=== PATIENT | female | born 1985 | race Caucasian/White ===

== ENCOUNTER 2016-08-14 18:52 | Emergency (ER) | payer OTHER ==
[2016-08-14 19:06] VITALS: BP 124/90
== END 2016-08-14 20:31 | disposition left against medical advice (07) ==
LOC: ED 18:52
DX: R42 Dizziness and giddiness (principal)
CPT/HCPCS: 93005

== ENCOUNTER 2018-12-04 12:49 | Inpatient (IN) | payer OTHER ==
[2018-12-04] MEDS ORDERED: Lactated Ringers 1000 ML Bag* 1,000 ML IV ONE (14:21)
[2018-12-04] MEDS ORDERED: Buffered Lidocaine 1% SYRIN* 1 ML/SYRINGE INTRADERM ONE (14:21)
[2018-12-04] MEDS ORDERED: Dinoprostone* 10 MG VAG.SUPP VAGINAL ONE (14:21)
[2018-12-04 15:45] LABS: Urine Appearance Cloudy; Urine Bacteria 1+ (Absent); Urine Bilirubin Negative (Negative); Urine Blood 2+ (Negative); Urine Color Yellow; Urine Glucose Negative (Negative); Urine Ketones 1+ (Negative); Urine Nitrite Negative (Negative); Urine Protein Negative (Negative); Urine Red Blood Cell Trace(0-2/hpf) (Absent); Urine Specific Gravity 1.025 (1.010-1.030); Urine Squamous Epithelial Cell Present (Absent); Urine Urobilinogen Negative (Negative); Urine White Blood Cell Trace(0-5/hpf) (Absent)
[2018-12-04 15:46] LABS: ABS Eosinophils 0.1 10^3/ul (0-0.6); ABS Lymphocytes 1.6 10^3/ul (1.0-4.8); ABS Monocytes 0.7 10^3/ul (0-0.8); ABS Neutrophils 7.8 10^3/ul (1.5-7.7); Eosinophil % 0.5 %; Hematocrit 35 % (35-47); Hemoglobin 12.5 g/dL (12.0-16.0); Lymphocyte % 15.6 %; Mean Corpuscular HGB Conc 36 g/dL (31-36); Mean Corpuscular Hemoglobin 32 pg (27-31); Mean Corpuscular Volume 91 fL (80-97); Mean Platelet Volume 8.9 fL (7.4-10.4); Nucleated Red Blood Cells % 0.2; Platelet Count 248 10^3/uL (150-450); Red Blood Count 3.89 10^6 /uL (3.70-4.87); Red Cell Distribution Width 12 % (10.5-15); White Blood Count 10.2 10^3/uL (3.5-10.8)
[2018-12-04 15:57] LABS: Urine Benzodiazepine Screen None Detected (None Detect); Urine Opiates Screen None Detected (None Detect)
[2018-12-04 15:58] LABS: Albumin 3.5 g/dL (3.2-5.2); Calcium 9.3 mg/dL (8.6-10.3); Potassium 3.9 mmol/L (3.5-5.0); Total Bilirubin 0.5 mg/dL (0.2-1.0)
[2018-12-04 16:04] LABS: Albumin/Globulin Ratio 1.3 (1-3); BUN/Creatinine Ratio 19.2 (8-20); EGFR African American 162.4 (>60); EGFR Non-African American 134.2 (>60); Globulin 2.8 g/dL (2-4); Total Protein 6.3 g/dL (6.4-8.9); Uric Acid 5.1 mg/dL (2.3-6.6)
[2018-12-04] MEDS ORDERED: diPHENhydraMINE PO* 50 MG PO PRN (16:59)
--- NOTE | 2018-12-04 17:06 | HP ---
General Information - Reason for Visit Pt c/o headache and blurred vision. Pt denies epigastric pain, contractions or LOF. - General Information Maternal Age: 33 Grav: 2 Para: 0 SAB: 0 IEA: 1 Estimated Due Date: 12/03/18 Determined By: LMP Maternal Blood Type and Rh: A Positive - Results this Serology/RPR Result: Non-Reactive Rubella Result: Immune HBsAg Result: Negative HIV Result: Negative GBS Culture Result: Negative Past Medical History Pertinent Past Medical History: See Records - history of drug abuse, migraines, GI inflamation Pertinent Past Surgical History: See Records - 11 hand surgeries for infection, laproscopy x 2 - Antepartal Records Antepartal Records: Reviewed, Complicated by: - history of drug abuse Review of Systems Constitutional: Comfortable CV Complaint: No Respiratory: Shortness of Breath: No Gastrointestinal: No Nausea/Vomiting, Normal Bowel Movement Genitourinary: No Dysuria, No Bleeding, No Leaking Fluid Musculoskeletal: No Epigastric Pain, Contractions Neurological: Headache, Blurred Vission Movement: Normal Exam Allergies/Adverse Reactions: Allergies vancomycin Allergy (Verified 12/04/18 15:17) Hives Vital Signs 12/04/18 13:44 Temperature 99.5 F Pulse Rate 86 Respiratory 18 Rate Blood Pressure 150/86 (mmHg) O2 Sat by Pulse 96 Oximetry Lab Values - Entire Visit: Laboratory Tests 12/04/18 12/04/18 12/04/18 15:08 15:08 15:10 WBC 10.2 RBC 3.89 Hgb 12.5 Hct 35 MCV 91 MCH 32 H MCHC 36 RDW 12 Plt Count 248 MPV 8.9 Neut % (Auto) 76.6 Lymph % (Auto) 15.6 [place] % (Auto) 7.0 Eos % (Auto) 0.5 Baso % (Auto) 0.3 Absolute Neuts (auto) 7.8 H Absolute Lymphs (auto) 1.6 Absolute Monos (auto) 0.7 Absolute Eos (auto) 0.1 Absolute Basos (auto) 0.0 Absolute Nucleated RBC 0.0 Nucleated RBC % 0.2 Sodium 135 Potassium 3.9 Chloride 104 Carbon Dioxide 22 Anion Gap 9 BUN 10 Creatinine 0.52 0.51 Est GFR ( Amer) 162.4 Est GFR (Non-Af Amer) 134.2 BUN/Creatinine Ratio 19.2 Glucose 82 Uric Acid 5.1 Calcium 9.3 Total Bilirubin 0.50 AST 19 ALT 16 Alkaline Phosphatase 114 H Total Protein 6.3 L Albumin 3.5 Globulin 2.8 Albumin/Globulin Ratio 1.3 Urine Color Urine Appearance Urine pH Ur Specific [place] Urine Protein Urine Ketones Urine Blood Urine Nitrate Urine Bilirubin Urine Urobilinogen Ur Leukocyte Esterase Urine WBC (Auto) Urine RBC (Auto) Ur Squamous Epith Cells Urine Bacteria Ur Creatinine Concen 142.66 Urine Glucose Urine Opiates Screen Ur Barbiturates Screen Ur Phencyclidine Scrn Ur Amphetamines Screen U Benzodiazepines Scrn Urine Cocaine Screen U Cannabinoids Screen Blood Type Antibody Screen 12/04/18 12/04/18 12/04/18 15:13 15:13 15:59 WBC RBC Hgb Hct MCV MCH MCHC RDW Plt Count MPV Neut % (Auto) Lymph % (Auto) [place] % (Auto) Eos % (Auto) Baso % (Auto) Absolute Neuts (auto) Absolute Lymphs (auto) Absolute Monos (auto) Absolute Eos (auto) Absolute Basos (auto) Absolute Nucleated RBC Nucleated RBC % Sodium Potassium Chloride Carbon Dioxide Anion Gap BUN Creatinine Est GFR ( Amer) Est GFR (Non-Af Amer) BUN/Creatinine Ratio Glucose Uric Acid Calcium Total Bilirubin AST ALT Alkaline Phosphatase Total Protein Albumin Globulin Albumin/Globulin Ratio Urine Color Yellow Urine Appearance Cloudy Urine pH 6.0 Ur Specific [place] 1.025 Urine Protein Negative Urine Ketones 1+ A Urine Blood 2+ A Urine Nitrate Negative Urine Bilirubin Negative Urine Urobilinogen Negative Ur Leukocyte Esterase Negative Urine WBC (Auto) Trace(0-5/hpf) Urine RBC (Auto) Trace(0-2/hpf) Ur Squamous Epith Cells Present A Urine Bacteria 1+ A Ur Creatinine Concen Urine Glucose Negative Urine Opiates Screen None detected Ur Barbiturates Screen None detected Ur Phencyclidine Scrn None detected Ur Amphetamines Screen None detected U Benzodiazepines Scrn None detected Urine Cocaine Screen None detected U Cannabinoids Screen None detected Blood Type A Positive Antibody Screen Negative - Measurements Height: 5 ft 8 in Weight: 245 lb Weight in lbs: [id number] Body Mass Index (BMI): 37.2 Pre- Weight: 180 lb Weight Gained This : 65 lbs and 0 ozs - Exam Breast: Breast Exam Deferred CVA: No CVA Tenderness Extremities: No Edema Heart: Normal Rhythm/Heart Sounds HEENT: No Significant Findings Lungs: Clear Bilaterally Rectal: Rectal Exam Deferred Reflexes: DTR 2+ Thyroid: No Thyromegaly - Abdominal Exam Abdomen Exam: Non-Tender, Fundal Height Consistent with Dates - Ultrasound/Biophysical Profile Ultrasound Status: Not Done Targeted Exam Findings Cervical Exam: 2cm Effacement: 70% Station: -1 Presenting Part: Vertex Membrane Status: Intact Bleeding/Discharge: None EFM Findings - External Monitor Findings Baseline Heart Rate: 125 External Monitor Findings: Accelerations Present, No Pattern of Variable or Late Decelerations, Variability Moderate, Baseline Stable Contractions: Irregular, Mild, < 45 Seconds Assessment/Plan - Assessment 33 y.o. , GBS negative, 40w1d, G HTN - Obstetrical Risk Factors Obstetrical Risk Factors: Gestational Hypertension - Plan Plan: Cervical Ripening - Date/Time of Admission Date of Admission: 12/04/18 Time of Admission: 17:08
[2018-12-04 17:28] LABS: EGFR African American 166.1 (>60); EGFR Non-African American 137.2 (>60)
[2018-12-04] MEDS: Acetaminophen TAB* 325 MG PO PRN (18:51)
--- NOTE | 2018-12-05 12:08 | PN ---
Progress Note - Progress Note Date of Service: 12/05/18 SOAP: Subjective: [Pt reports contractions are more intense but still mild and irregular. Pt denies LOF, reports + FM, - VB.] Objective: [131/70 FHR: 125, +accels, -decels, moderate variability. Cervix: 2cm/75/-1] Assessment: [33 y.o. , 40w 2d EGA, G HTN, cervical ripening] Plan: [1) Leave cervidil in place until 16:52 2) reevaluate and consider additional cervical ripening 3) Questions answered to patient satisfaction]
[2018-12-05] MEDS: Buprenorphine TAB* 2 MG TAB.SL PO SCH (19:14)
[2018-12-05] MEDS ORDERED: lamoTRIgine TAB(*) 100 MG PO ONE (20:00)
[2018-12-05] MEDS ORDERED: Dinoprostone* 10 MG VAG.SUPP VAGINAL ONE (20:36)
--- NOTE | 2018-12-05 20:41 | PN ---
Progress Note - Progress Note Date of Service: 12/05/18 SOAP: Subjective: Pt reports ctx are more intense but she can still talk through them and they are irregular. -LOF, -VB, + FM. Objective: BP:126/72, P:72, R:18, T:98.3 FHR: 130 bpm, + accels, -decels, moderate variability, ctx q 4-5min, mild to palpation. cervix: 375/-1 Assessment: 33 y.o. , G HTN, early labor Plan: 1) Reviewed options and R/B and pt agree to continue with cervidil overnight with plan to AROM in AM if cervix is favorable 2) Questions answered to pt satisfaction 3) Benadryl PRN for rest overnight. 4) Reevaluate in AM or sooner PRN ]
[2018-12-05] MEDS ORDERED: Nalbuphine* 10 MG/ML 1 ML VIAL IV PRN (21:24)
[2018-12-05] MEDS: Promethazine INJ(RESTRICTED)* 25 MG/ML 1 ML VIAL IV PRN (21:43)
[2018-12-05] MEDS: Lactated Ringers 1000 ML Bag* 1,000 ML IV SCH (21:47)
[2018-12-06] MEDS: Promethazine INJ(RESTRICTED)* 25 MG/ML 1 ML VIAL IV PRN (03:50)
[2018-12-06] MEDS: Buprenorphine TAB* 2 MG TAB.SL PO SCH ×6 (03:56→21:04)
--- NOTE | 2018-12-06 11:29 | PN ---
Progress Note - Progress Note Date of Service: 12/06/18 SOAP: Subjective: Pt reports contractions are more mild. Pt slept a bit overnight and is still feeling a bit groggy this AM. Pt is considering epidural for when pain gets more intense. Objective: BP:127/71, P:69, R:18/min, T:97.8 FHR: 125 bpm, + accels, -decels, moderate variability, ctx q 4-5 min. Cervix 4/90/-1 AROM- small amount, blood tinged Assessment: 33 y.o. , G HTN, early labor Plan: 1) Reviewed pain mgmt options 2) AROM for augmentation of labor, consider pitocin if ctx do not increase 3) Encourage ambulation and position changes
[2018-12-06] MEDS: lamoTRIgine TAB(*) 100 MG PO SCH (21:11)
[2018-12-06] MEDS ORDERED: OBEPIDURAL* 250 ML EPIDURAL ONE (23:17)
--- NOTE | 2018-12-06 23:19 | PN ---
Progress Note - Progress Note Date of Service: 12/06/18 SOAP: Subjective: Pt uncomfortable, coping well with contractions but requesting epidural. + bloody show, + LOF, + FM. Objective: BP:131/72, P:73, R:17, T:97.8 FHR: 135, + accels, -decels, moderate variability, ctx q 4 min Assessment: 33 y.o. , 40w 3 days EGA, active labor, GBS negative, Cat I tracing Plan: 1) Epidural 2) Position changes reevaluate when comfortable
[2018-12-07] MEDS ORDERED: Lactated Ringers 1000 ML Bag* 1,000 ML IV ONE (00:20)
[2018-12-07] MEDS ORDERED: Famotidine TAB* 20 MG PO PRN (00:20)
[2018-12-07] MEDS ORDERED: Phenylephrine 40 MCG/ML SYRINGE IV PUSH PRN ×2 (00:20)
[2018-12-07] MEDS ORDERED: EPHEDrine (Pressors)* 50 MG/ML VIAL IV PUSH PRN ×2 (00:20)
[2018-12-07] MEDS ORDERED: Lactated Ringers 1000 ML Bag* 500 ML IV PRN ×2 (00:20)
[2018-12-07] MEDS ORDERED: Sodium Citrate/Citric Acid* 15 ML UDC PO PRN (00:20)
[2018-12-07] MEDS ORDERED: Lactated Ringers 1000 ML Bag* 1,000 ML IV SCH ×2 (01:00→23:45)
[2018-12-07] MEDS: Buprenorphine TAB* 2 MG TAB.SL PO SCH ×2 (01:55→02:00)
[2018-12-07] MEDS: Lactated Ringers 1000 ML Bag* 1,000 ML IV SCH (02:01)
--- NOTE | 2018-12-07 12:43 | PN ---
Progress Note - Progress Note Date of Service: 12/07/18 SOAP: Subjective: Pt with increasing pressure. Objective: BP:113/56, P:92, T:99.1, R:18, FHR: 130, + accels, -decels, moderate variability, ctx 3-6min cervix: 10/90/0 Assessment: 33 y.o. , 40w 4d EGA, G HTN, prolonged labor, GBS negative Plan: 1) Labor down 2) Reevaluate in 20 minutes
[2018-12-07] MEDS ORDERED: Oxytocin in LR* 20 UNITS/1,000 ML BAG IVPB ONE (12:57)
[2018-12-07] MEDS ORDERED: Bupivacaine 0.25% SDV PF* 10 ML VIAL INJ ONE (14:32)
[2018-12-07] MEDS ORDERED: Saline NASAL SPRAY 0.65%* BTL BOTH NARES PRN (16:03)
[2018-12-07] MEDS ORDERED: Oxytocin in LR* 20 UNITS/1,000 ML BAG IVPB SCH ×2 (17:00→23:45)
[2018-12-07] MEDS ORDERED: ceFOXitin 2 GM IVPREMIX* 2 GM/50 ML BAG IVPB ONE (21:26)
[2018-12-07] MEDS ORDERED: Carboprost Tromethamine* 250 MCG INJ ONE (21:39)
[2018-12-07] MEDS ORDERED: Lidocaine 2% EPI 1:200000 MPF*10-20 ML VIAL ONE (22:31)
[2018-12-07] MEDS ORDERED: OXYTOCIN* 10 UNITS/ML 1 ML VIAL ONE (22:32)
[2018-12-07] MEDS ORDERED: Ondansetron INJ* 2 MG/ML VIAL ONE ×2 (22:32→23:13)
[2018-12-07] MEDS ORDERED: Ketorolac INJ* 30 MG/ML 1 ML VIAL ONE (22:35)
[2018-12-07] MEDS ORDERED: Propofol* 10 MG/ML 20 ML BTL ONE (22:35)
[2018-12-07] MEDS ORDERED: KETAMINE HCL* 50 MG/ML 10 ML VIAL ONE (22:35)
[2018-12-07] MEDS ORDERED: diPHENhydraMINE IV* 50 MG/ML 1 ml VIAL (BENADRYL) ONE (23:13)
[2018-12-07] MEDS ORDERED: Chloroprocaine 3%* 20 ML VIAL ONE (23:13)
[2018-12-07] MEDS ORDERED: Dibucaine 1% 28.35 GM TUBE PR PRN (23:30)
[2018-12-07] MEDS ORDERED: Zolpidem TAB* 5 MG PO PRN (23:30)
[2018-12-07] MEDS ORDERED: Tetan/Diph/Pertus SYR(Tdap)* 0.5 ML SYR(BOOSTRIX) use SYR IM ONE (23:30)
[2018-12-07] MEDS ORDERED: Witch Hazel PAD* JAR TOPICAL PRN (23:30)
[2018-12-07] MEDS ORDERED: Glycerin ADULT SUPP PR PRN (23:30)
[2018-12-07] MEDS ORDERED: Ondansetron INJ* 2 MG/ML VIAL IV PRN (23:39)
[2018-12-07] MEDS ORDERED: PROCHLORPERAZINE INJ 5 MG/ML 2 ML VIAL IV PRN (23:39)
[2018-12-07] MEDS ORDERED: diPHENhydraMINE IV* 50 MG/ML 1 ml VIAL (BENADRYL) IV PRN (23:39)
[2018-12-07] MEDS ORDERED: Acetaminophen IV 1GM/100ML * 1,000 MG/100 ML VIAL IVPB ONE (23:39)
[2018-12-07] MEDS ORDERED: DiMENhydriNATE IV* 50 MG/ML VIAL IV PUSH PRN (23:39)
[2018-12-07] MEDS ORDERED: Naloxone* 0.4 MG/ML 1 ML VIAL IV PRN (23:39)
[2018-12-07] MEDS ORDERED: Ketorolac INJ* 30 MG/ML 1 ML VIAL IV PUSH SCH (23:45)
[2018-12-08] MEDS ORDERED: Gabapentin CAP(*) 300 MG PO ONE (01:00)
[2018-12-08] MEDS: lamoTRIgine TAB(*) 100 MG PO SCH ×2 (02:41→20:26)
[2018-12-08] MEDS ORDERED: Buprenorphine TAB* 8 MG PO SCH ×3 (03:15→10:00)
[2018-12-08] MEDS ORDERED: hydrOXYzine HCL TAB* 50 MG PO PRN (03:28)
--- NOTE | 2018-12-08 03:36 | OP ---
DATE OF OPERATION: 12/07/18 - ROOM #105 DATE OF : 81 SURGEON: Amando Locke MD CUFFING MACHINE OPERATOR: Ana Paula Santana CM ANESTHESIA: Epidural. PRE-OP DIAGNOSIS: Arrest of descent, maternal exhaustion. POST-OP DIAGNOSIS: Arrest of descent, maternal exhaustion, persistent occiput posterior. OPERATIVE PROCEDURE: Lower transverse section. ESTIMATED BLOOD LOSS: 800 cc. COMPLICATIONS: None. FINDINGS: This is a 33-year-old who had a prolonged labor, got fully dilated and pushed for over two and a half hours without any descent beyond +1 cm. At the time of , she had a viable male. Apgars were 8 and 9. Weight was 8 pounds 13 ounces. Normal-appearing uterus, fallopian tubes and ovaries. DESCRIPTION OF PROCEDURE: The patient was identified and procedure identified as a low transverse section. The patient was taken to the operating room, prepped and draped in the usual fashion in the left lateral recumbent position under epidural anesthesia. A Pfannenstiel incision was made in the abdomen and carried down through fat, fascia, and peritoneum. A bladder flap was created via sharp dissection. A transverse incision was made in the lower uterine segment and extended laterally using blunt dissection. The above infant was delivered through the incision with ease. The cord was doubly clamped and cut and the was handed to the awaiting motor builder winder. Cord blood was obtained. Placenta was delivered spontaneously. Uterus was wiped out with the wet lap sponge. The uterine incision was then closed using 0 Polysorb in a running fashion. There was an extension down the left perivaginal area, which was closed using 0 Polysorb in a running fashion. A second layer was used to imbricate the first layer. Good hemostasis achieved with 0 Polysorb figure-of-8 sutures. Good hemostasis was verified within the abdominal cavity after replacement of the uterus.. The peritoneum was then closed using 3-0 Polysorb in a running fashion. Good hemostasis was achieved in the subrectus layers. The fascia was closed using 0 Polysorb in a running fashion. Good hemostasis was achieved in the subcu. Copious irrigation was utilized and suctioned out and the skin was closed with 4-0 Monocryl in a subcuticular fashion. All sponge and instrument counts were correct and the patient returned to the recovery room in stable condition. [id number]/[facility] #: [id number] YO
[2018-12-08] MEDS: oxyCODONE TAB* 5 MG TAB PO PRN ×4 (03:51→22:26)
[2018-12-08] MEDS: Promethazine INJ(RESTRICTED)* 25 MG/ML 1 ML VIAL IV PRN (03:54)
[2018-12-08] MEDS: Buprenorphine TAB* 8 MG PO SCH ×4 (04:35→20:27)
[2018-12-08 06:48] LABS: ABS Basophils 0.1 10^3/ul (0-0.2); ABS Lymphocytes 1.5 10^3/ul (1.0-4.8); ABS Monocytes 0.9 10^3/ul (0-0.8); ABS Neutrophils 8.1 10^3/ul (1.5-7.7); Eosinophil % 0.1 %; Hematocrit 27 % (35-47); Hemoglobin 9.6 g/dL (12.0-16.0); Lymphocyte % 14.2 %; Mean Corpuscular HGB Conc 35 g/dL (31-36); Mean Corpuscular Hemoglobin 32 pg (27-31); Mean Corpuscular Volume 91 fL (80-97); Mean Platelet Volume 8.9 fL (7.4-10.4); Nucleated Red Blood Cells % 0.1; Platelet Count 187 10^3/uL (150-450); Red Blood Count 2.99 10^6 /uL (3.70-4.87); Red Cell Distribution Width 12 % (10.5-15); White Blood Count 10.5 10^3/uL (3.5-10.8)
[2018-12-08] MEDS: OBEPIDURAL* 250 ML EPIDURAL SCH ×2 (07:27→07:30)
[2018-12-08] MEDS: Docusate CAP* 100 MG PO SCH ×3 (08:22→15:14)
[2018-12-08] MEDS: Simethicone TAB* 80 MG TAB.CHEW PO SCH ×4 (08:22→20:26)
[2018-12-08] MEDS: Acetaminophen TAB* 325 MG PO PRN ×3 (08:23→22:27)
[2018-12-08] MEDS: Ferrous Gluconate TAB* 324 MG TAB PO SCH ×2 (10:01→20:26)
[2018-12-08] MEDS: Ibuprofen TAB* 600 MG PO PRN ×2 (10:04→17:46)
[2018-12-08] MEDS: Buprenorphine TAB* 2 MG TAB.SL PO SCH ×2 (10:27→10:28)
[2018-12-09] MEDS: Ibuprofen TAB* 600 MG PO PRN ×3 (02:56→18:19)
[2018-12-09] MEDS: oxyCODONE TAB* 5 MG TAB PO PRN ×5 (02:56→21:53)
[2018-12-09] MEDS: Acetaminophen TAB* 325 MG PO PRN ×5 (04:04→20:56)
[2018-12-09] MEDS: Docusate CAP* 100 MG PO SCH ×4 (04:15→20:41)
[2018-12-09] MEDS: Buprenorphine TAB* 8 MG PO SCH ×2 (08:23→20:36)
[2018-12-09] MEDS: Ferrous Gluconate TAB* 324 MG TAB PO SCH ×2 (08:23→20:35)
[2018-12-09] MEDS: Simethicone TAB* 80 MG TAB.CHEW PO SCH ×4 (08:23→20:35)
--- NOTE | 2018-12-09 08:29 | PTEDU ---
Patient Name: GENET CANDELARIA GENET CANDELARIA selected video: Follow Me Mum: [employer] Successful to view on 9 at 8:28:10 AM from [id number]
[2018-12-09] MEDS: lamoTRIgine TAB(*) 100 MG PO SCH (21:46)
[2018-12-10] MEDS: Ibuprofen TAB* 600 MG PO PRN ×2 (00:41→06:42)
[2018-12-10] MEDS: oxyCODONE TAB* 5 MG TAB PO PRN ×2 (02:08→06:06)
[2018-12-10] MEDS: Acetaminophen TAB* 325 MG PO PRN ×2 (06:06→10:06)
[2018-12-10] MEDS: Buprenorphine TAB* 8 MG PO SCH (08:40)
[2018-12-10] MEDS: Ferrous Gluconate TAB* 324 MG TAB PO SCH (08:41)
[2018-12-10] MEDS: Simethicone TAB* 80 MG TAB.CHEW PO SCH (08:41)
[2018-12-10] MEDS: Docusate CAP* 100 MG PO SCH (08:45)
[2018-12-10 08:48] VITALS: BP 111/76
== END 2018-12-10 11:15 | disposition home or self-care (01) | DRG 540 ==
LOC: MCHOBOUT 12:49 → MCHOB 17:02
PROVIDERS: ADMIT Midwife; ATTEND Obstetrics & Gynecology
PROC: 4A1HXCZ Monitoring of Products of Conception, Cardiac Rate, External Approach (ICD-10-PCS; 2018-12-04)
PROC: 3E033VJ Introduction of Other Hormone into Peripheral Vein, Percutaneous Approach (ICD-10-PCS; 2018-12-04)
PROC: 10907ZC Drainage of Amniotic Fluid, Therapeutic from Products of Conception, Via Natural or Artificial Opening (ICD-10-PCS; 2018-12-04)
PROC: 3E0P7VZ Introduction of Hormone into Female Reproductive, Via Natural or Artificial Opening (ICD-10-PCS; 2018-12-04)
PROC: 10D00Z1 Extraction of Products of Conception, Low, Open Approach (ICD-10-PCS; principal; 2018-12-07 22:00)
DX: O48.0 Post-term pregnancy (principal); O13.4 Gestational [pregnancy-induced] hypertension without significant proteinuria, complicating childbirth; Z37.0 Single live birth; Z88.1 Allergy status to other antibiotic agents; Z3A.40 40 weeks gestation of pregnancy; O90.81 Anemia of the puerperium; O62.1 Secondary uterine inertia; O75.81 Maternal exhaustion complicating labor and delivery; O63.0 Prolonged first stage (of labor)
CPT/HCPCS: 36415; 76815; 80053; 80307; 81003; 81015; 82565; 82570; 84550; 85025; 86850; 86900; 86901; 87086; 90715; A9270-GY; J0694; J1200; J1885; J2300; J2400; J2405; J2550; J2590; J2704; J3490

== ENCOUNTER 2018-12-20 16:08 | Emergency (ER) | payer OTHER ==
[2018-12-20 16:24] VITALS: BP 129/90
--- NOTE | 2018-12-20 16:28 | UC ---
Skin Complaint HPI - HPI Summary HPI Summary: 33 y/o female presents to the urgent care c/o redness above her for the past 5 days. Pt reports she delivered her baby on 12/07/2018 and on Friday night 12/16/2018, she noticed her abdomen was red above the C- section. She saw her Cast Shell Grinder on and she was Rx Keflex PO. Pt has been taking it and Tylenol/ Ibuprofen to alleviate symptoms. she has noticed the redness has decreased in size, but she still isn't feeling well completely due to pain. Pt also takes Subutex PO and last night she realized she run out of her medication. She called the pharmacy and she was told her refill is not due until Friday12/22/2018. Pt needs a refill for [address] Shakir Bran who has Rx her medication and he is not available due to the holiday. Pt denies fever, SOB, chills, dizziness, chest pain, abdominal pain, N/ V/D or usrinary symptoms. she has been breast feeding her baby w/o any problems - History of Current Complaint Chief Complaint: UCSkin Time Seen by Provider: 12/20/18 16:26 Stated Complaint: SKIN COMPLAINT Hx Obtained From: Patient Hx Last Menstrual Period: 2 weeks ago Onset/Duration: Gradual Onset, Lasting Days - 5 days, Still Present Skin Exposure Onset/Duration: Days Ago - 5 days Timing: Constant Onset Severity: Mild Current Severity: Moderate Pain Intensity: 5 Pain Scale Used: 0-10 Numeric Location: Discrete - lower abdomen redness above the - Allergy/Home Medications Allergies/Adverse Reactions: Allergies Allergy/AdvReac Type Severity Reaction Status Date / Time vancomycin Allergy Hives Verified 12/20/18 19:50 Home Medications: Home Medications Acetaminophen TAB* [Tylenol TAB*] 1,000 mg PO Q4H PRN 12/20/18 [History Confirmed 12/20/18] PMH/Surg Hx/FS Hx/Imm Hx Previously Healthy: Yes Other GI/ History: Endometriosis Neurological History: Seizures - Surgical History Surgical History: Yes Surgery Procedure, Year, and Place: MULTIPLE RT HAND SURGERIES--SKIN GRAFTS, AMPUTATIONS OF THUMB/POINTER FINGER RIGHT HAND;. ABD LAPROSCOPY FOR ENDOMETRIOSIS;. c-sec, 2018. PT HAS VERY POOR IV ACCESS. SHOULD BE SCHEDULED ON DAYS WITH IV START TEAM/ULTRASOUND FOR CONTRASTED IMAGING STUDIES.* - Family History Known Family History: Positive: Cardiac Disease - father's side of family, Diabetes - mother's side of family - Social History Occupation: Disabled Lives: With Family Alcohol Use: None Substance Use Type: None Substance Use Comment - Amount & Last Used: former on subutex Smoking Status (MU): Former Smoker Type: Cigars, eCigarettes Household Exposure Type: Cigars - Immunization History Most Recent Influenza Vaccination: none Most Recent Pneumonia Vaccination: none Review of Systems All Other Systems Reviewed And Are Negative: Yes Constitutional: Positive: Negative Skin: Positive: Rash - red painful rash in the lower abdominal wall above the C- section Eyes: Positive: Negative ENT: Positive: Negative Respiratory: Positive: Negative Cardiovascular: Positive: Negative Gastrointestinal: Positive: Negative Genitourinary: Positive: Negative Motor: Positive: Negative Neurovascular: Positive: Negative Musculoskeletal: Positive: Negative Neurological: Positive: Negative Psychological: Positive: Negative Is Patient Immunocompromised?: No Physical Exam - Summary Physical Exam Summary: Vital Signs Reviewed: Yes General: well appearing, well nourished obese female in no acute apparent pain distress, sitting comfortably on examining table Eye Exam: Normal Eyes: Positive: Conjunctiva Clear - PERRLA< EOMI, fundi grossly normal ENT: Positive: Normal ENT inspection, Hearing grossly normal, Pharynx normal, TMs normal Neck: Positive: Supple, Nontender, No Lymphadenopathy Respiratory: Positive: Chest non-tender, Lungs clear, Normal breath sounds, No respiratory distress Cardiovascular: Positive: RRR, No Murmur, Pulses Normal, Brisk Capillary Refill Abdomen: Nontender, with no distention. No surface trauma, horizontal scars above the suprapubic bone healing well, positive cellulitis above the scar. hyperactive bowel sounds present in all four quadrants. No tenderness, guarding, rigidity to palpation. No masses palpated, no pulsation in epigastric area. No organomegaly. Negative [place] signs. No periumbilical tenderness. No rebound in the lower quadrants. NT over McBurneys point. Good femoral pulses bilaterally. No hernia noted. No CVAT bilaterally. Bowel Sounds: Positive: Present Musculoskeletal: Positive: Strength Intact, ROM Intact, No Edema Neurological: Positive: Alert, Muscle Tone Normal Psychological Exam: Normal Skin: Positive: Positive erythematous patch w/ indistinct borders, warm and tender to palpation about 12cm x 4 cm in size, no drainage observed, scar healing well. pulses WNL, capillary refill brisk, sensation WNL. Triage Information Reviewed: Yes Vital Signs: Initial Vital Signs Temp 98.1 F 12/20/18 16:18 Pulse 92 12/20/18 16:18 Resp 16 12/20/18 16:18 BP 129/90 12/20/18 16:18 Pulse Ox 98 12/20/18 16:18 Course/Dx - Course Course Of Treatment: 33 y/o female presents to the urgent care c/o redness above her for the past 5 days. Pt reports she delivered her baby on 12/07/2018 and on Friday night 12/16/2018, she noticed her abdomen was red above the C- section. She saw her Cast Shell Grinder on and she was Rx Keflex PO. Pt has been taking it and Tylenol/ Ibuprofen to alleviate symptoms. she has noticed the redness has decreased in size, but she still isn't feeling well completely due to pain. Pt also takes Subutex PO and last night she realized she run out of her medication. She called the pharmacy and she was told her refill is not due until Friday12/22/2018. Pt needs a refill for [address] Shakir Bran who has Rx her medication and he is not available due to the holiday. Pt denies fever, SOB, chills, dizziness, chest pain, abdominal pain, N/ V/D or usrinary symptoms. she has been breast feeding her baby w/o any problems. Hx obtained. Pt w/ cellulitis on lower abdominal wall on examination s/p C- section. scar healing well. Pt presents Iphone picture of the first days of symptoms. when compared with presenting symptoms, Cellulitis seems rivka improving. I demarcated the area w/ a skin marker. Pt advised to continue taking keflex PO as directed by her DR and continue taking Tylenol PO or Ibuprofen PO for pain and swelling. Advised to avoid heavy lifting or strenuous exercise. I explained Pt we are unable to Rx Subutex PO at the urgent care. I- Stop#[id number] performed. Last dose of Subutex PO was Rx By DR Omi Bran and was dispensed on 11/24/2018. I discussed Pt's symptoms w/ Dr Alvares who contacted [facility] health and other providers who can Rx Subotex PO w/o any success. [facility] contacted and they can Rx one dose for today. I spoke to DR Crouch at the [facility] who states Pt can be given today's dose. Pt highly recommended to go to the ER for her Subotex dose. Pt left clinic hemodynamically stable, A&Ox3 and ambulating - Differential Diagnoses - Skin Complaint Differential Diagnoses: Abscess, Cellulitis, MRSA - Diagnoses Provider Diagnosis: Cellulitis of abdominal wall, Elevated BP without diagnosis of hypertension Discharge - Sign-Out/Discharge Documenting (check all that apply): Patient Departure - d/C home All imaging exams completed and their final reports reviewed: No Studies - Discharge Plan Condition: Stable Disposition: HOME-RECOMMEND TO ED Patient Education Materials: Cellulitis (ED) Referrals: Olivier Black MD [Primary Care Provider] - 2 Days Additional Instructions: 1-Please continue taking Keflex PO as directed by the dispute coordinator. 2- If redness and swelling doubles in size beyond what was demarcated after 48 hrs of taking antibiotic and fever develops please go to the ER immediately. 3-Avoid standing for long periods of time, avoid heavy lifting. Please take Tylenol PO or Ibuprofen PO q6-8hrs prn after meals to alleviate pain or swelling 4-Please F/u with your Cast Shell Grinder in 2 days for a check up to make sure symptoms are improving. 5- Please go to the ER to be able to get a dose for your Subutex PO since you run out your medication last night. i spoke to Dr Crouch at the [facility]. He is aware of your problem. 6- Your BP is elevated today. please decrease salt in your diet, monitor BP and if it continues to be elevated please f/u with your PCP for further management. - Billing Disposition and Condition Condition: STABLE Disposition: Home-Recommend to ED - Attestation Statements Provider Attestation: I was available for consult. This patient was seen by the [facility]. The patient was not presented to, seen by, or examined by me. -Tawanda
== END 2018-12-20 17:58 | disposition home health service (06) ==
LOC: UCEAST 16:08
DX: L03.311 Cellulitis of abdominal wall (principal); R03.0 Elevated blood-pressure reading, without diagnosis of hypertension; Z88.1 Allergy status to other antibiotic agents; Z87.891 Personal history of nicotine dependence
CPT/HCPCS: 99212; G0463

== ENCOUNTER 2018-12-20 18:49 | Emergency (ER) | payer OTHER ==
[2018-12-20] MEDS ORDERED: Buprenorp/Nalox 2-0.5 MG SL TB 1 EACH TAB.SUBL SL ONE (20:26)
[2018-12-20] MEDS ORDERED: Buprenorp/Nalox 8-2 MG SL TAB.SL PO ONE (20:33)
--- NOTE | 2018-12-20 20:34 | ED ---
Complex/Multi-Sys Presentation - HPI Summary HPI Summary: Patient states she cannot fill her Suboxone prescription until Friday due to holiday. Denies any other symptoms injury or pain. - History Of Current Complaint Chief Complaint: EDMedicationRefill Time Seen by Provider: 12/20/18 20:25 Hx Obtained From: Patient Severity Currently: None - Allergies/Home Medications Allergies/Adverse Reactions: Allergies Allergy/AdvReac Type Severity Reaction Status Date / Time vancomycin Allergy Hives Verified 12/20/18 19:50 Home Medications: Home Medications Buprenorphine TAB* [Subutex TAB*] 12 mg PO DAILY 12/20/18 [History Confirmed ] PMH/Surg Hx/FS Hx/Imm Hx Endocrine/Hematology History: Denies: Hx Diabetes Cardiovascular History: Denies: Hx Hypertension, Hx Pacemaker/ICD GI History: Reports: Other GI Disorders - "stomach issues", was told she was bulimic History: Reports: Other Problems/Disorders - endometriosis. Denies: Hx Renal Disease Musculoskeletal History: Reports: Other Musculoskeletal History - oil burn on hand, osteomyelitis, has had 9 surgeries including skin graft Sensory History: Denies: Hx Hearing Aid Opthamlomology History: Denies: Hx Legally Blind EENT History: Denies: Hx Deafness Neurological History: Denies: Hx Dementia Psychiatric History: Reports: Hx Depression, Hx Panic Disorder - ANXIETY, Hx Bipolar Disorder, Other Psychiatric Issues/Disorders - Surgical History Surgery Procedure, Year, and Place: MULTIPLE RT HAND SURGERIES--SKIN GRAFTS, AMPUTATIONS OF THUMB/POINTER FINGER RIGHT HAND;. ABD LAPROSCOPY FOR ENDOMETRIOSIS;. c-sec 2019. PT HAS VERY POOR IV ACCESS. SHOULD BE SCHEDULED ON DAYS WITH IV START TEAM/ULTRASOUND FOR CONTRASTED IMAGING STUDIES.* Infectious Disease History: No Infectious Disease History: Denies: Traveled Outside the [place] in Last 30 Days - Family History Known Family History: Positive: Cardiac Disease - father's side of family, Diabetes - mother's side of family - Social History Alcohol Use: None Substance Use Type: Reports: None Substance Use Comment - Amount & Last Used: former on subutex Hx Tobacco Use: Yes Smoking Status (MU): Former Smoker Type: Cigars, eCigarettes Review of Systems Constitutional: Negative Eyes: Negative ENT: Negative Cardiovascular: Negative Respiratory: Negative Gastrointestinal: Negative Genitourinary: Negative Musculoskeletal: Negative Skin: Negative Neurological: Negative Psychological: Normal All Other Systems Reviewed And Are Negative: Yes Physical Exam Triage Information Reviewed: Yes Vital Signs On Initial Exam: Initial Vitals Temp Pulse Resp BP Pulse Ox 97.8 F 83 16 149/83 98 12/20/18 19:02 12/20/18 19:02 12/20/18 19:02 12/20/18 19:02 12/20/18 19:02 Vital Signs Reviewed: Yes Appearance: Positive: Well-Appearing Skin: Positive: Warm Head/Face: Positive: Normal Head/Face Inspection Eyes: Positive: Normal Neck: Positive: Supple Respiratory/Lung Sounds: Positive: Clear to Auscultation Cardiovascular: Positive: Normal Abdomen Description: Positive: Nontender Musculoskeletal: Positive: Normal Neurological: Positive: Normal Psychiatric: Positive: Normal AVPU Assessment: Alert - Ward Coma Scale Best Eye Response: 4 - Spontaneous Best Motor Response: 6 - Obeys Commands Best Verbal Response: 5 - Oriented Coma Scale Total: 15 Diagnostics - Vital Signs Vital Signs Temp Pulse Resp BP Pulse Ox 12/20/18 19:02 97.8 F 83 16 149/83 98 - Laboratory Lab Statement: Any lab studies that have been ordered have been reviewed, and results considered in the medical decision making process. Complex Multi-Symp Course/Dx Course Of Treatment: Patient states she cannot fill her Suboxone prescription until Friday due to holiday. Denies any other symptoms injury or pain. Vital signs within normal limits. Suboxone 12 mg given here in the ED per patient prescription. No prescription for Suboxone provided. Follow-up with primary care. - Diagnoses Provider Diagnoses: Medication administered Discharge - Sign-Out/Discharge Documenting (check all that apply): Patient Departure Patient Received Moderate/Deep Sedation with Procedure: No - Discharge Plan Condition: Stable Disposition: HOME Patient Education Materials: Buprenorphine/Naloxone (Into the mouth) Referrals: Olivier Black MD [Primary Care Provider] - Additional Instructions: Follow-up with primary care. Return to the ED for any new or worsening symptoms. - Billing Disposition and Condition Condition: STABLE Disposition: Home
[2018-12-20 20:47] VITALS: BP 143/80
== END 2018-12-20 20:46 | disposition home or self-care (01) ==
LOC: ED 18:49
DX: Z79.891 Long term (current) use of opiate analgesic (principal); Z88.1 Allergy status to other antibiotic agents; Z87.891 Personal history of nicotine dependence
CPT/HCPCS: 99282; A9270-GY

== ENCOUNTER 2020-12-19 09:59 | Observation (INO) ==
[~2020-12-19 09:59] MED LIST: Buffered Lidocaine 1% SYRIN 1 ml INTRADERM ONE; Lactated Ringers 1000 ml BAG 1,000 ML IV SCH
[2020-12-19] MEDS ORDERED: ceFAZolin 2 GM PREMIX 2 GM/50 ML BAG ONE ×2 (10:16→15:35)
[2020-12-19] MEDS ORDERED: Buffered Lidocaine 1% SYRIN 1 ml INTRADERM ONE (10:16)
[2020-12-19 11:05] LABS: Hematocrit 37 % (35-47); Hemoglobin 12.9 g/dL (12.0-16.0); Mean Corpuscular HGB Conc 35 g/dL (31-36); Mean Corpuscular Hemoglobin 31 pg (27-31); Mean Corpuscular Volume 89 fL (80-97); Mean Platelet Volume 8.5 fL (7.4-10.4); Platelet Count 247 10^3/uL (150-450); Red Blood Count 4.15 10^6 /uL (3.70-4.87); Red Cell Distribution Width 12 % (10-15); White Blood Count 5.9 10^3/uL (3.5-10.8)
[2020-12-19] MEDS ORDERED: Midazolam 2 mg/2 ml VIAL 1 mg/ml 2 ml VIAL (2 mg) ONE ×3 (11:19→15:53)
[2020-12-19] MEDS ORDERED: Bupivacaine 0.5% SDV PF 30ML VIAL ONE (11:20)
[2020-12-19] MEDS ORDERED: Lidocaine 2% PF 5 ML VIAL ONE (11:20)
[2020-12-19] MEDS ORDERED: Dexamethasone IV 4 MG/ML VIAL 1 ml VIAL ONE ×2 (11:20→12:57)
[2020-12-19 11:25] LABS: INR 1.1 (0.82-1.09)
[2020-12-19] MEDS ORDERED: Lidocaine 1% MPF 5 ML VIAL ONE (11:50)
[2020-12-19] MEDS ORDERED: Lidocaine 1% w EPI 1:200,000 SDV 30 ML VIAL ONE (12:13)
[2020-12-19] MEDS ORDERED: Acetaminophen IV 1 GM/100ML 100 ML ONE ×2 (12:50→17:35)
[2020-12-19] MEDS ORDERED: Ketamine HCL 50 mg/ml 10 ml VIAL (500 MG) ONE (12:55)
[2020-12-19] MEDS ORDERED: Ondansetron 4 mg VIAL 2 MG/ML 2 ml VIAL ONE (12:57)
[2020-12-19] MEDS ORDERED: Propofol 10 MG/ML 20 ML BTL ONE ×5 (13:10→16:09)
[2020-12-19] MEDS ORDERED: DiMENhydriNATE IV 50 mg/ml 1 ml VIAL IV PUSH PRN ×2 (15:11→17:36)
[2020-12-19] MEDS ORDERED: Naloxone 0.4 mg VIAL 0.4 mg/ml 1 ml VIAL IV PRN ×2 (15:11→17:36)
[2020-12-19] MEDS ORDERED: Propofol 10 mg/ml 100 ML BTL 100 ML ONE (16:14)
[2020-12-19] MEDS ORDERED: diPHENhydraMINE 25 mg TAB PO PRN (17:03)
[2020-12-19] MEDS ORDERED: Ondansetron 4 mg VIAL 2 MG/ML 2 ml VIAL IV PRN (17:03)
[2020-12-19] MEDS ORDERED: Ondansetron ODT 4 mg TAB 4 MG TAB PO PRN (17:36)
[2020-12-19] MEDS: Lactated Ringers 1000 ml BAG 1,000 ML IV SCH (19:28)
[2020-12-19] MEDS: Morphine ORAL.SOLN 10 mg 2 mg/ml UDC 5 ml (10 mg) PO PRN (20:25)
[2020-12-19] MEDS ORDERED: Enoxaparin 40 MG/0.4 ML SYR SUBCUT SCH (21:00)
[2020-12-20] MEDS: ceFAZolin 1 GM ADVAN 1 GM in NS 0.9% 50 ML 50 ML IVPB SCH ×3 (00:25→15:38)
[2020-12-20] MEDS: Morphine ORAL.SOLN 10 mg 2 mg/ml UDC 5 ml (10 mg) PO PRN ×2 (00:25→04:59)
[2020-12-20] MEDS: Lactated Ringers 1000 ml BAG 1,000 ML IV SCH (05:44)
[2020-12-20] MEDS ORDERED: Amphetamine/Dextroam ER 10(NF) 10 mg CAP.ER PO SCH (09:00)
[2020-12-20 10:47] LABS: Hematocrit 34 % (35-47); Hemoglobin 11.6 g/dL (12.0-16.0)
[2020-12-20 10:48] LABS: Albumin 3.6 g/dL (3.2-5.2); Albumin/Globulin Ratio 1.3 (1-3); Calcium 9.1 mg/dL (8.6-10.3); EGFR African American 126.3 (>60); EGFR Non-African American 104.4 (>60); Globulin 2.7 g/dL (2-4); Potassium 3.8 mmol/L (3.5-5.0); Total Bilirubin 0.6 mg/dL (0.2-1.0); Total Protein 6.3 g/dL (6.4-8.9)
[2020-12-20 16:25] VITALS: BP 111/49
== END 2020-12-20 16:45 | disposition home or self-care (01) ==
LOC: SSU 09:59 → OR 09:59
PROVIDERS: ADMIT Orthopaedic Surgery Sports Medicine; ATTEND Orthopaedic Surgery Sports Medicine

== ENCOUNTER 2021-02-20 06:10 | Observation (INO) ==
[~2021-02-20 06:10] MED LIST changes: +ceFAZolin 2 GM in NS PREMIX 2 GM/100 ML BAG IVPB ONE
[2021-02-20] MEDS ORDERED: Buffered Lidocaine 1% SYRIN 1 ml INTRADERM ONE (06:36)
[2021-02-20] MEDS ORDERED: Lidocaine 1% w EPI 1:200,000 SDV 30 ML VIAL ONE (07:15)
[2021-02-20] MEDS ORDERED: Midazolam 5 mg/5 ml VIAL 1 mg/ml 5 ml VIAL (5 mg) ONE (07:37)
[2021-02-20] MEDS ORDERED: Lidocaine 2% PF 5 ML VIAL ONE ×2 (07:38→15:00)
[2021-02-20] MEDS ORDERED: Bupivacaine 0.5% SDV PF 30ML VIAL ONE (07:38)
[2021-02-20] MEDS ORDERED: Ondansetron 4 mg VIAL 2 MG/ML 2 ml VIAL ONE (07:38)
[2021-02-20] MEDS ORDERED: ROPIVACAINE 5 MG/ML 30 ML BTL (0.5%) ONE (08:01)
[2021-02-20] MEDS ORDERED: Lidocaine 1% MPF 5 ML VIAL ONE (08:01)
[2021-02-20] MEDS ORDERED: Dexamethasone IV 4 MG/ML VIAL 1 ml VIAL ONE (09:41)
[2021-02-20] MEDS ORDERED: Lidocaine 2% PF 10 ML AMP ONE ×5 (11:28→15:10)
[2021-02-20] MEDS ORDERED: Propofol 10 MG/ML 20 ML BTL ONE (11:50)
[2021-02-20] MEDS ORDERED: Propofol 10 mg/ml 100 ML BTL 100 ML ONE (13:19)
[2021-02-20] MEDS ORDERED: ceFAZolin VIAL VIAL ONE (13:22)
[2021-02-20] MEDS ORDERED: diPHENhydraMINE IV 50 MG/ML 1 ml VIAL (BENADRYL) IV PRN (14:21)
[2021-02-20] MEDS ORDERED: Ondansetron ODT 4 mg TAB 4 MG TAB PO PRN (14:21)
[2021-02-20] MEDS ORDERED: Magnesium Hydroxide LIQ 30 ML UDC PO PRN (14:21)
[2021-02-20] MEDS ORDERED: Lactulose 30 ml UDC PO PRN (14:21)
[2021-02-20] MEDS ORDERED: Ondansetron 4 mg VIAL 2 MG/ML 2 ml VIAL IV PRN (14:21)
[2021-02-20] MEDS ORDERED: diPHENhydraMINE 25 mg TAB PO PRN (14:21)
[2021-02-20] MEDS ORDERED: BUPRENORPHINE SUBCUT SCH (14:30)
[2021-02-20] MEDS ORDERED: Morphine 4 MG/ML VIAL (1 ml) ONE (14:50)
[2021-02-20] MEDS: Morphine 2 MG/ML SYRINGE IV PRN (14:50)
[2021-02-20] MEDS ORDERED: DiMENhydriNATE IV 50 mg/ml 1 ml VIAL IV PUSH PRN (15:10)
[2021-02-20] MEDS: Lactated Ringers 1000 ml BAG 1,000 ML IV SCH (17:04)
[2021-02-20] MEDS: ceFAZolin 1 GM ADVAN 1 GM in NS 0.9% 50 ML 50 ML IVPB SCH (19:14)
[2021-02-20] MEDS: Magnesium Hydroxide LIQ 30 ML UDC PO SCH (20:41)
[2021-02-21] MEDS: Lactated Ringers 1000 ml BAG 1,000 ML IV SCH (03:19)
[2021-02-21] MEDS: ceFAZolin 1 GM ADVAN 1 GM in NS 0.9% 50 ML 50 ML IVPB SCH ×2 (03:21→10:36)
[2021-02-21 05:51] LABS: Hematocrit 33 % (35-47); Hemoglobin 11.2 g/dL (12.0-16.0); Mean Platelet Volume 8.7 fL (7.4-10.4); Platelet Count 291 10^3/uL (150-450)
[2021-02-21 06:11] LABS: Calcium 8.4 mg/dL (8.6-10.3); EGFR African American 128.7 (>60); EGFR Non-African American 106.3 (>60); Potassium 3.8 mmol/L (3.5-5.0)
[2021-02-21] MEDS ORDERED: Vitamin THERAPEUTIC TAB PO SCH (09:00)
[2021-02-21] MEDS ORDERED: Amphetamine/Dextroam ER 20(NF) 20 mg CAP.ER PO SCH (09:00)
[2021-02-21] MEDS ORDERED: Amphetamine/Dextroam ER 10(NF) 10 mg CAP.ER PO SCH (09:00)
[2021-02-21] MEDS: Magnesium Hydroxide LIQ 30 ML UDC PO SCH (09:10)
[2021-02-21] MEDS: Morphine 2 MG/ML SYRINGE IV PRN (10:43)
[2021-02-21 11:16] VITALS: BP 109/68
== END 2021-02-21 15:05 | disposition home or self-care (01) ==
LOC: OR 06:10 → SSU 06:10
PROVIDERS: ADMIT Orthopaedic Surgery Sports Medicine; ATTEND Orthopaedic Surgery Sports Medicine